=== PATIENT | female | born 1945 | race Caucasian/White ===

== ENCOUNTER 2019-12-01 18:08 | Emergency (ER) | payer MEDICARE, OTHER, SELFPAY ==
--- NOTE | 2019-12-01 18:11 | DI.RAD.S_ITS ---
PROCEDURE: XR ANKLE LT MIN 3V INDICATIONS: fall with ankle pain TECHNIQUE: 3 views of the ankle were acquired. COMPARISON: None. FINDINGS: Bones: Displaced medial and lateral malleolus fractures, both extending into the ankle mortise. Medial displacement of the tibia with widening of the tibial fibular syndesmosis and mortise. No fractures or dislocations. Ankle mortise is normally aligned. No suspicious bony lesions. Soft tissues: Moderate-sized tibiotalar joint effusion. Achilles tendon appears normal. IMPRESSION: Displaced medial and lateral malleolus fractures, both with extension into the mortise. Medial displacement of the tibia with widening of the tibia fibular syndesmosis and mortise. Dictated by: Eliceo Ruiz M.D. on 12/01/2019 at 18:22 Approved by: Eliceo Ruiz M.D. on 12/01/2019 at 18:25
--- NOTE | 2019-12-01 18:12 | ED.LOWEXIN ---
HPI - Extremity Injury (Lower) General Chief Complaint: Extremity Injury, Lower Stated Complaint: fall, ankle pain Time Seen by Provider: 12/01/19 18:10 Source: patient and EMS Mode of arrival: EMS Limitations: no limitations History of Present Illness HPI Narrative: 74-year-old female nonsmoker with history of chronic a flutter on Coumadin presents with a would be EMS for evaluation of left ankle injury. [place] local trail when she misstepped and inverted her ankle and felt a pop. She is convinced there is something broken. She has significant pain with ambulation or palpation and notable swelling on the lateral aspect of her ankle. She denies numbness, tingling or weakness. She denies any other injury as a consequence of her fall such as head, neck or back pain. She was put in a vacuum splint and transported to room 4 MD complaint: ankle injury Onset (ago): hour(s) Type of Injury: inversion Place: street/outdoors Severity: moderate Relieving factors: immobilization and rest Exacerbating factors: weight bearing, movement and palpation Context: fall and walking Associated symptoms: snap/pop sensation and swelling Other symptoms: none Treatments prior to arrival: splint Related Data Previous Rx's Medication Instructions Recorded hydrocodone-acetaminophen 1 tab PO Q4-6H PRN #20 tab 12/01/19 ibuprofen 600 mg PO TID-QID PRN #20 tab 12/01/19 Allergies Allergy/AdvReac Type Severity Reaction Status Date / Time bee venom protein (honey bee) Allergy Verified 12/01/19 18:16 Penicillins Allergy Verified 12/01/19 18:16 Review of Systems Constitutional Constitutional: Denies chills, Denies fatigue, Denies fever(s), Denies frequent falls, Denies lethargy and Denies weakness Eyes Eyes: Denies change in vision, Denies eye discharge, Denies irritation and Denies loss of vision ENT Ears, Nose, Mouth, and Throat: Denies change in voice, Denies dizziness, Denies neck pain, Denies sore throat and Denies throat swelling Cardiovascular Cardiovascular: Denies chest pain, Denies irregular heart rhythm, Denies lightheadedness, Denies palpitations, Denies dyspnea, Denies dyspnea on exertion and Denies orthopnea Respiratory Respiratory: Denies cough, Denies dyspnea, Denies dyspnea on exertion and Denies wheezing Gastrointestinal Gastrointestinal: Denies abdominal pain, Denies change in bowel habits, Denies diarrhea, Denies nausea and Denies vomiting Musculoskeletal Musculoskeletal: Reports deformity, Reports joint swelling, Reports limited range of motion, Denies neck pain and Denies numbness Integumentary/Breasts Skin/Breast: Denies pruritus, Denies erythema, Denies rash and Denies wounds Neurologic Neurologic: Denies behavioral changes, Denies confusion, Denies dizziness, Denies frequent falls, Denies loss of vision, Denies numbness and Denies weakness Psychiatric Psychiatric: Denies anxiety, Denies behavioral changes, Denies confusion, Denies depression, Denies homicidal ideation and Denies suicidal ideation Endocrine Endocrine: Denies fatigue, Denies flushing and Denies palpitations Hematologic/Lymphatic Hematologic/Lymphatic: Denies easy bruising Allergic/Immunologic Allergic/Immunologic: Denies urticaria, Denies throat swelling and Denies wheezing Patient History Medical History (Updated 12/01/19 @ 18:52 by Rey Felix DO) Carcinoid tumor (Acute) Surgical History (Updated 12/01/19 @ 18:52 by Rey Felix DO) Status post lobectomy of lung (Acute) Social History Smoking Status: Never smoker Smoking Status: Never smoker alcohol intake frequency: 0-2 drinks per day Substance Use Type: does not use Exam Narrative Exam Narrative: GENERAL: [74] year old patient appears stated age. Well-nourished, well-developed patient, in mild distress. HEAD: Atraumatic. Normocephalic. EYES: Pupils equal round and reactive. Extraocular motions intact. No scleral icterus. No injection or drainage. ENT: Nose without bleeding, purulent drainage. Throat without erythema, tonsillar hypertrophy or exudate. Airway patent. NECK: Trachea midline. Non tender CARDIOVASCULAR: Regular rate and rhythm without murmurs, gallops, or rubs. RESPIRATORY: Clear to auscultation. Breath sounds equal bilaterally. No wheezes, rales, or rhonchi. GASTROINTESTINAL: Abdomen soft, non-tender, nondistended. EXTREMITIES: Left ankle swelling inferior to the lateral malleolus. No obvious deformity. Tenderness over lateral malleolus. No tenderness over Achilles for anterior talus. Closed, isolated and neurovascularly intact BACK: Nontender without deformity or crepitance. No flank tenderness. NEURO: AOx3. SKIN: No rash or erythema of visible areas Initial Vital Signs Initial Vital Signs: Vital Signs Pulse Rate 104 H 12/01/19 18:17 Respiratory Rate 18 12/01/19 18:17 Blood Pressure 114/85 12/01/19 18:17 Pulse Oximetry 98 12/01/19 18:17 Course Orders Ordered: Discontinued Medications Hydrocodone Bitart/Acetaminophen (Vicodin 5/325 Prepack) 1 bottle MISC SEEINSTR ONE Stop: 12/01/19 18:15 Last Admin: 12/01/19 18:34 Dose: 1 bottle Documented by: IZZY Hydrocodone Bitart/Acetaminophen ([place] 5/325) 1 tab PO NOW ONE Stop: 12/01/19 18:31 Last Admin: 12/01/19 18:34 Dose: 1 tab Documented by: IZZY Consultations Consultation #1: discussion with Dr. Quezada (ortho) whom is in agreement with our plan and will see her in the office tomorrow Consultation #2: patient lives in [place] and intends to follow up up there. I've called [facility] and Dr. Doe ([facility] [phone]) is [employer]. He has been paged ([phone]) Vital Signs Vital signs: Vital Signs - 8 hr 12/01/19 18:17 Pulse Rate 104 H Respiratory Rate 18 Blood Pressure 114/85 Pulse Oximetry 98 Discharge Plan Departure Patient Disposition: Home Clinical Impression: Bimalleolar ankle fracture Qualifiers: Encounter type: initial encounter Fracture type: closed Laterality: left Qualified Code(s): S82.842A - Displaced bimalleolar fracture of left lower leg, initial encounter for closed fracture Discharge Date/Time: 12/01/19 21:09 Instructions: Ankle Fracture Activity Restrictions/Additional Instructions: *You have been diagnosed with [ left ankle bimalleolar fracture ] *What to do: *Hold your coumadin for the next few days, the [facility] will call you tomorrow to arrange follow up. Otherwise take medications as directed. NO WEIGHT BEARING *Follow up with Dr. Doe [phone]. I've called him today. Also, I've given you contact info for our local orthopedics office for completeness sake should you wish to follow up there. *Return to ER if you should have any new, worsening or concerning symptoms, such as [numbness, tingling, increasing pain or other bothersome symptoms] Prescriptions: New ibuprofen 600 mg tablet 600 mg PO TID-QID PRN (Reason: pain) Qty: 20 RF: 0 hydrocodone-acetaminophen 5-325 mg tablet 1 tab PO Q4-6H PRN (Reason: pain) Qty: 20 RF: 0 Referrals: [facility] [Outside] Eliceo Doe MD [Non-Staff] - Rony Trujillo MD [Physician] -
[2019-12-01 18:17] VITALS: BP 114/85; PULSE 104; RESP 18; O2SAT 98
[2019-12-01] MEDS: HYDROCODONE/ACET 5/325 TABLET 1 TAB PO (18:34)
[2019-12-01] MEDS: HYDROCODONE/ACET 5/325 PREPACK 1 BOTTLE MISC (18:34)
[2019-12-01 21:08] VITALS: BP 116/78; PULSE 85; RESP 16; TEMP 36.7; O2SAT 97
== END 2019-12-01 21:09 | disposition home or self-care (01) ==
PROVIDERS: Emergency Provider Emergency Medicine
DX: S82.842A Displaced bimalleolar fracture of left lower leg, initial encounter for closed fracture (principal); Y93.01 Activity, walking, marching and hiking
CPT/HCPCS: 29515; 73610; 99283; 99284